=== PATIENT | male | born 1975 | race Caucasian/White ===

== ENCOUNTER 2017-01-25 14:25 | Emergency (ER) | payer BC ==
[2016-04-13 07:05] VITALS: BMI 32.2
[~2017-01-25 14:25] MED LIST: BAYER CHEWABLE81 MG PO; BENICAR HCT 40-1 TAB PO; FUROSEMIDE20 MG PO; KLOR-CON M2020 MEQ PO; NEXIUM20 MG PO; NORVASC5 MG PO; OXYCONTIN10 MG PO; PROZAC20 MG PO
[2017-01-25 15:18] LABS: BASOPHILS 0.1 % (0-2); EOSINOPHILS 0.3 % (0-7); HEMATOCRIT 44.7 % (42.0-54.0); HEMOGLOBIN 15.7 g/dL (13.5-17.5); IMMATURE GRANULOCYTES 0.2 % (0-5); LYMPHOCYTES 8.1 % (15-50); MCHC 35.1 g/dL (31.0-37.0); MCV 85.3 fL (80.0-100.0); MEAN PLATELET VOLUME 9.6 fL (7.4-10.4); MONOCYTES 7.5 % (2-11); NEUTROPHILS 83.8 % (40-80); PLATELET COUNT 222 10x3/uL (130-400); RBC 5.24 10x6/uL (4.20-6.10); RDW 12.6 % (11.5-14.5); WBC 17.1 10x3/uL (4.8-10.8)
[2017-01-25 15:34] LABS: APPEARANCE CLEAR (CLEAR); BILIRUBIN NEGATIVE (NEGATIVE); COLOR YELLOW (YELLOW); GLUCOSE NEGATIVE (NEGATIVE); KETONE NEGATIVE (NEGATIVE); NITRITE NEGATIVE (NEGATIVE); PROTEIN NEGATIVE (NEGATIVE); RED CELLS - URINE 0-5 /hpf (0-5); UROBILINOGEN NORMAL (NORMAL); WHITE CELLS - URINE >50 /hpf (0-5)
[2017-01-25 15:35] LABS: BACTERIA FEW /hpf (NONE SEEN)
[2017-01-25 16:09] LABS: ALKALINE PHOSPHATASE 61 U/L (46-116); ALT (SGPT) 65 U/L (10-68); BILIRUBIN - TOTAL 1.61 mg/dL (0.2-1.3); CALC OSMOLALITY 271 mosm/kg (275-300); CALCIUM 8.8 mg/dL (8.5-10.1); CARBON DIOXIDE 27.2 mmol/L (21.0-32.0); CHLORIDE - SERUM 101 mmol/L (98-107); CREATININE - SERUM 1.1 mg/dL (0.6-1.3); GLUCOSE 93 mg/dL (74-106); POTASSIUM - SERUM 4.1 mmol/L (3.5-5.1); PROTEIN - SERUM 7.2 g/dL (6.4-8.2); SODIUM 137 mmol/L (136-145); UREA NITROGEN 7 mg/dL (7-18); eGFR NON AFRICAN AMERICAN 79 mL/min (90-120)
== END 2017-01-25 18:30 | disposition home or self-care (01) ==
LOC: D.ER 14:25
PROVIDERS: Physician Assistant Medical
DX: N30.00 Acute cystitis without hematuria (principal); I10 Essential (primary) hypertension

== ENCOUNTER 2017-06-22 06:36 | Emergency (ER) | payer BC ==
[2016-04-13 07:05] VITALS: BMI 32.2
[2017-06-22 07:06] LABS: BASOPHILS 0.3 % (0-2); EOSINOPHILS 1.5 % (0-7); HEMATOCRIT 47.9 % (42.0-54.0); IMMATURE GRANULOCYTES 0.2 % (0-5); LYMPHOCYTES 24.3 % (15-50); MCH 29.9 pg (26.0-34.0); MCHC 35.5 g/dL (31.0-37.0); MCV 84.3 fL (80.0-100.0); MEAN PLATELET VOLUME 9.6 fL (7.4-10.4); MONOCYTES 7.1 % (2-11); NEUTROPHILS 66.6 % (40-80); PLATELET COUNT 238 10x3/uL (130-400); RBC 5.68 10x6/uL (4.20-6.10); RDW 12.5 % (11.5-14.5); WBC 9.9 10x3/uL (4.8-10.8)
[2017-06-22 07:22] LABS: ALBUMIN 3.9 g/dL (3.4-5.0); ALKALINE PHOSPHATASE 66 U/L (46-116); ALT (SGPT) 46 U/L (10-68); BILIRUBIN - TOTAL 1.58 mg/dL (0.2-1.3); CALC OSMOLALITY 277 mosm/kg (275-300); CALCIUM 9.2 mg/dL (8.5-10.1); CARBON DIOXIDE 28.4 mmol/L (21.0-32.0); CHLORIDE - SERUM 102 mmol/L (98-107); CREATININE - SERUM 1.2 mg/dL (0.6-1.3); GLUCOSE 100 mg/dL (74-106); PROTEIN - SERUM 8.1 g/dL (6.4-8.2); SODIUM 139 mmol/L (136-145); UREA NITROGEN 12 mg/dL (7-18); eGFR NON AFRICAN AMERICAN 71 mL/min (90-120)
[2017-06-22 07:32] LABS: CHOL - HDL RATIO 3.6 ratio (2.3-4.9); CHOLESTEROL, TOTAL 177 mg/dL (0-200); CKMB 0.5 U/L (0.0-3.6); CREATINE KINASE 139 UL (21-232); HDL CHOLESTEROL 49 mg/dL (32-96); LDL CHOLESTEROL 110 mg/dL (0-100); LDL-HDL RATIO 2.2 ratio (1.5-3.5); TRIGLYCERIDE 91 mg/dL (30-200); TROPONIN-I < 0.017 ng/mL (0.000-0.060)
== END 2017-06-22 08:58 | disposition home or self-care (01) ==
LOC: D.ER 06:36
PROVIDERS: Emergency Medicine
DX: R07.9 Chest pain, unspecified (principal); R59.0 Localized enlarged lymph nodes; I10 Essential (primary) hypertension; F17.200 Nicotine dependence, unspecified, uncomplicated

== ENCOUNTER 2018-01-04 08:41 | Emergency (ER) | payer BC ==
[~2018-01-04] VITALS: Ht 182.9 cm; Wt 104.5 kg
[2018-01-04 08:47] VITALS: Ht 182.9 cm; Wt 104.5 kg
[2018-01-04 09:14] LABS: BASOPHILS 0.1 % (0-2); EOSINOPHILS 0.1 % (0-7); HEMATOCRIT 43.4 % (42.0-54.0); HEMOGLOBIN 15.3 g/dL (13.5-17.5); IMMATURE GRANULOCYTES 0.5 % (0-5); LYMPHOCYTES 18.3 % (15-50); MCH 29.4 pg (26.0-34.0); MCHC 35.3 g/dL (31.0-37.0); MCV 83.5 fL (80.0-100.0); MEAN PLATELET VOLUME 9.5 fL (7.4-10.4); MONOCYTES 7.9 % (2-11); NEUTROPHILS 73.1 % (40-80); PLATELET COUNT 266 10x3/uL (130-400); RDW 12.5 % (11.5-14.5); WBC 13.7 10x3/uL (4.8-10.8)
[2018-01-04 09:33] LABS: APTT 26.2 SECONDS (22.8-39.4); INR 0.97 (0.85-1.17); PROTIME 12.5 SECONDS (11.6-15.0)
[2018-01-04 09:36] LABS: ALBUMIN 3.8 g/dL (3.4-5.0); ALKALINE PHOSPHATASE 64 U/L (46-116); ALT (SGPT) 74 U/L (10-68); BILIRUBIN - TOTAL 0.79 mg/dL (0.2-1.3); CALC OSMOLALITY 277 mosm/kg (275-300); CALCIUM 8.3 mg/dL (8.5-10.1); CARBON DIOXIDE 26.6 mmol/L (21.0-32.0); CHLORIDE - SERUM 105 mmol/L (98-107); GLUCOSE 100 mg/dL (74-106); POTASSIUM - SERUM 3.7 mmol/L (3.5-5.1); PROTEIN - SERUM 7.8 g/dL (6.4-8.2); SODIUM 139 mmol/L (136-145); UREA NITROGEN 12 mg/dL (7-18); eGFR NON AFRICAN AMERICAN 87 mL/min (90-120)
[2018-01-04] MEDS ORDERED: BUTALB-APAP-CA1 EACH PO (13:23)
[2018-01-04 13:49] VITALS: BP 139/94
== END 2018-01-04 13:51 | disposition home or self-care (01) ==
LOC: D.ER 08:41
PROVIDERS: Family Medicine
DX: R51 Headache (principal); D72.829 Elevated white blood cell count, unspecified; Z53.20 Procedure and treatment not carried out because of patient's decision for unspecified reasons

== ENCOUNTER → 2018-11-27 13:56 | Outpatient (CLI) | payer OTHER ==
[2018-01-04 08:47] VITALS: BMI 31.2
[~2018-11-27 13:56] MED LIST changes: +BUTALB-APAP-CA1 EACH PO
== END | disposition home or self-care (01) ==
LOC: D.HCCARDIO 13:56
PROVIDERS: ATTEND Internal Medicine Cardiovascular Disease
DX: I20.9 Angina pectoris, unspecified (principal)

== ENCOUNTER 2019-12-31 18:55 | Observation (INO) | payer OTHER ==
[~2019-12-31] VITALS: Ht 182.9 cm; Wt 102.3 kg
--- NOTE | ~2019-12-31 | HEMODYNAMI ---
PATIENT:NIALL RYAN MEDICAL RECORD: [id number] : 77 [id number] ADMISSION DATE: 12/31/19 Generatedon:01/01/202014:39 Patient name: NIALL RYAN Patient #: [id number] : 1975 Date of study: 01/01/2020 Page: Of Hemodynamic Procedure Report Patient Data Patient Demographics Procedure consent was obtained First Name: NIALL Gender: Male Last Name: CONNOR : 1975 Patient #: [id number] Age: 44 year(s) Race: SSN: [id number] Additional ID: [id number] Contact details [address]: [address] [place] [address] rd State: [place] City: [place] Zip code: [address] Past Medical History Allergies: No known allergies Admission Admission Data Admission Date: 12/31/2019 Admission Time: 21:00 Admit Source: Emergency Insurance Payor: Private department health insurance Room #: D.2121 [facility] #: [id number] Height (in.): 71.65 BSA: 2.23 (m2) Height (cm.): 182 BMI: 30.79 (kg/m2) Weight (lbs.): 224.87 Weight (kg.): 102 Lab Results Lab Result Date: 01/01/2020 Lab Result Time: 0:00 Biochemistry Name Units Result Min Max BUN mg/dl 15 --(--*-)-- 7 18 Creatinine mg/dl 1.2 --(---*)-- 0.6 1.3 eGFR ml/min 70.20123 *-(----)-- 90 120 NONAFRICAN CBC Name Units Result Min Max Hematocrit % 44.3 --(*---)-- 42 54 Hemoglobin g/dl 15.1 --(-*--)-- 13.5 17.5 Procedure Procedure Types Cath Procedure Diagnostic Procedure [facility] w/Coronaries Procedure Description Procedure Date Procedure Date: 01/01/2020 Procedure Start Time: 14:27 Procedure End Time: 14:36 Procedure Staff Name Function Kwame Gray MD Performing Physician Judy Chin RT Monitor Cadence David, RN Nurse Cadence David, RN Nurse Luiz Jackson RT Scrub Cynthiajo ann Fine RT Grocery Shopper Procedure Data Cath Procedure Fluoroscopy Diagnostic fluoroscopy Total fluoroscopy Time: 1.7 time: 1.7 min min Diagnostic fluoroscopy Total fluoroscopy dose: 480 dose: 480 mGy mGy Contrast Material Contrast Material Type Amount (ml) Isovue 300 54 Entry Location Entry Primary Successful Side Size Upsize Upsize Entry Closure [place] ccessful Closure Location (Fr) 1 (Fr) 2 (Fr) Remarks Device Remarks Radial Right 6 Fr Mechanical artery Short Compression Estimated blood loss: 5 ml Diagnostic catheters Device Type Used For End Catheter Placement DIAGNOSTIC Warren 110cm 5 Procedure Fr catheter ([id number]) Procedure Complications No complications Procedure Medications Medication Administration Route Dosage Oxygen etCO2 Nasal cannula 2 l/min Heparin Flush Bag added to field 2 bags (1000units/500ml NS) Lidocaine 2% added to field 20 0.9% NaCl I.V. 100 ml/hr Fentanyl I.V. 50 mcg Versed I.V. 1 mg Radial Cocktail I.A. 1 syringe (Verapamil 2mg/Nitro 400mcg/Heparin 1500units) Fentanyl I.V. 50 mcg Versed I.V. 1 mg Versed I.V. 0.5 mg Hemodynamics Rest BSA: 2.23 (m2) HGB: 15.1 (g/dl) O2 Consumption: Estimated: 270.86 (ml/min) O2 Co nsumption indexed: Estimated:121.46 (ml/min/m) Heart Rate: 70 (bpm) Pressure Samples Time Site Value (mmHg) Purpose Heart Use Rate(bpm) 14:30 AO 110/86(98) Pullback 80 14:30 LV 102/6,10 Pullback 80 Gradients Valve Time Site 1 Site 2 Mean SEP/DFP Peak To Heart Use (mmHg) (sec/min) Peak Rate (mmHg) (bpm) Aortic 14:30 LV AO 0 80 102/6,10 110/86(98) Calculations Valve P-P Mean Valve Index Valve Source Name Gradient Area Flow (cm2) Aortic 0 0 Snapshots Pre Cath Intra NCS Post Cath Vital Signs Time Heart Resp SPO2 etCO2 NIBP (mmHg) Rhythm Pain Sedation Rate (ipm) (%) (mmHg) Status Level (bpm) 14:23:43 12 94 44.1 119/76(101) NSR 0 (11) 10(A) , No pain 14:27:59 67 10 96 48.6 128/82(101) NSR 0 (11) 9(A) , No pain 14:32:21 76 11 94 46.3 131/73(99) NSR 0 (11) 9(A) , No pain 14:36:39 11 95 45.5 125/69(86) NSR 0 (11) 10(A) , No pain Medications Time Medication Route Dose Verified Delivered Reason Notes Effectiveness by by 14:07:40 Oxygen etCO2 2 l/min Cadence Cadence for low 02 Nasal Joann David sats cannula RN RN 14:07:49 Heparin Flush added 2 bags Cadence Cadence used for Bag to Joann David procedure (1000units/500ml field RN ANTONELLA NS) 14:07:59 Lidocaine 2% added 20ml Cadence Kwame for local to vial [facility] Sean David anesthetic field ANTONELLA JACOBS 14:08:11 0.9% NaCl I.V. 100 Cadence Cadence Per ml/hr Joann David, physician RN RN 14:26:42 Fentanyl I.V. 50 mcg Cadence Cadence for sedation Joann David RN RN 14:26:48 Versed I.V. 1 mg Cadence Cadence for sedation Joann David RN RN 14:28:39 Radial Cocktail I.A. 1 Cadence Kwame for (Verapamil syringe St Sean David vasodilation 2mg/Nitro RN 400mcg/Heparin 1500units) 14:29:11 Versed I.V. 0.5 mg Cadence Cadence for sedation Joann David RN RN 14:31:19 Fentanyl I.V. 50 mcg Cadence Cadence for sedation Joann David RN RN 14:31:22 Versed I.V. 1 mg Cadence Cadence for sedation Joann David RN RN Procedure Log Time Note 13:59:24 Informed consent obtained and on chart 14:02:44 Admit Source: Emergency department 14:02:48 Insurance Payor : Private health insurance 14:03:01 Patient Height : 71.65 inches 14:03:04 Patient Weight : 224.87 lbs 14:: Lab Result : Hematocrit 44.3 % 14: Lab Result : eGFR NONAFRICAN 70.80167 ml/min 14:44 Lab Result : Hemoglobin 15.1 g/dl 14: Lab Result : BUN 15 mg/dl 14: Lab Result : Creatinine 1.2 mg/dl 14:04:17 ACC Patient presents with Unstable Angina CCS Anginal Class 3--Marked limitation of physical activity, angina occurs with ordinary activity.. 14:04:19 ACCPatient has been prescribed/administered the following anti-anginal medication within the last 2 weeks: Beta Adriano 14:04:22 Procedure Status Urgent Heart Cath (IP). 14:04:35 Cynthia Fine RT(R) sent for patient. Start room use. 14:04:36 Time tracking: Regular hours (M-F 7:00 - 5:00) 14:04:39 Plan of Care:Hemodynamics will remain stable., Cardiac rhythm will remain stable., Comfort level will be maintained., Respiratory function will remain adequate., Patient/ family verbilizes understanding of procedure., Procedure tolerated without complication., Recovers from procedure without complications.. 14:04:48 H&P Date Dictated: 12/31/2019 Within 30 days and on chart.. 14:07:40 Oxygen 2 l/min etCO2 Nasal cannula was administered by Cadence David RN; for low 02 sats; Verbal order read back and verified. 14:07:49 Heparin Flush Bag (1000units/500ml NS) 2 bags added to field was administered by Cadence David RN; used for procedure; Verbal order read back and verified. 14:07:59 Lidocaine 2% 20ml vial added to field was administered by Kwame Gray MD; for local anesthetic; Verbal order read back and verified. 14:08:11 0.9% NaCl 100 ml/hr I.V. was administered by Cadence David RN; Per physician; Verbal order read back and verified. 14:11:35 Patient received from Med II to CCL 1 Alert and oriented. Tansferred to table in Supine position. 14:11:48 Warm blankets applied, and jose hugger turned on for patient comfort. 14::49 Correct patient and procedure confirmed by team. 14::49 ECG and BP/O2 sat monitors applied to patient. 14::31 Vital chart was started 14:22:33 Baseline sample Acquired. 14::40 Rhythm: sinus rhythm 14::44 Full Disclosure recording started 14::45 - 14::46 Pre-procedure instructions explained to patient. 14::47 Pre-op teaching completed and patient verbalized understanding. 14::49 Family unavailable. 14:22:51 Patient NPO since Midnight. 14::59 Patient allergic to No known allergies 14:23:02 Is the patient allergic to Iodine/contrast media? No. 14:23:09 Was the patient premedicated? Yes 14:23:15 Is patient on blood thinner?No 14:23:18 If diabetic: On Metformin? No 14:23:20 ----Pre-sedation anethsthesia assessment.---- 14:23:24 Previous problem with sedation/anesthesia? No ? 14:23:26 Snore? Yes 14:23:29 Sleep apnea? No 14:23:31 Deviated septum? Unknown 14:23:34 Opens mouth fully? Yes 14:23:36 Sticks out tongue? Yes 14:23:40 Airway obstruction? No ? 14:23:46 Dentures? Yes in tight 14:24:00 Pre procedure: right dorsailis pedis pulse 2+ Normal; easily identifiable; not easily obliterated 14:24:09 IV patent on arrival in left antecubital with 0.9% NaCl at [facility]. 14:24:16 Stress Test: no; N/A ? 14:24:24 Right Radial & Right Groin area was prepped with chlora-prep and draped in sterile fashion 14:24:29 Alarms reviewed by RHumberto NHumberto 14:24:30 Sharps counted by scrub and verified by R.N. 14:24:35 Use device set Radial Dx or PCI 14:24:38 ACIST Syringe (83152) opened to sterile field. 14:24:38 Medline Cath Pack ([id number]) opened to sterile field. 14:24:39 Bag Decanter (2002) opened to sterile field. 14:24:40 ACIST Hand Control (21112) opened to sterile field. 14:24:40 ACIST Manifold (18064) opened to sterile field. 14:24:42 MBrace Wrist Support ([id number]) opened to sterile field. 14:24:44 EMERALD Guide Wire (986-578) opened to sterile field. 14:24:45 SHEATH 6FR RAIN (4520095) opened to sterile field. 14:26:32 Physician arrived 14::33 --------ALL STOP TIME OUT------ 14::34 Final Timeout: patient, procedure, and site verified with staff and physician. All members of the team are in agreement. 14:26:36 Right Radial & Right Groin site verified by team. 14::42 Fentanyl 50 mcg I.V. was administered by Cadence David RN; for sedation; Verbal order read back and verified. 14:26:42 Fire Safety Assessment: A--An alcohol-based skin anteseptic being used preoperatively., C--Open oxygen or nitrous oxide is being used., D--An ESU, laser, or fiber-optic light is being used. 14:26:46 Physical assessment completed. ASA score P 2 - A patient with mild systemic disease as per Kwame Gray MD. 14::48 Versed 1 mg I.V. was administered by Cadence David RN; for sedation; Verbal order read back and verified. 14:26:52 2) 60-89 Mildly reduced kidney function, and other findings (as for stage 1) point to kidney disease. 14:26:58 Maximum allowable contrast dose (3.7 X eGFR X 0.75)194 ml. 14:27:06 Sedation plan: IV Moderate Sedation Medication:Versed, Fentanyl 14:27:12 Procedure started. 14:27:19 Local anesthetic to right radial artery with Lidocaine 2% by Kwame Gray MD.INITIAL ACCESS ONLY 14:28:12 Zero performed for pressure channel P1 14:28:25 Zero performed for pressure channel P1 14:28:39 Radial Cocktail (Verapamil 2mg/Nitro 400mcg/Heparin 1500units) 1 syring e I.A. was administered by Kwame Gray MD; for vasodilation; Verbal order read back and verified. 14:28:50 Baseline sample Acquired. 14:29:11 Versed 0.5 mg I.V. was administered by Cadence David RN; for sedation; Verbal order read back and verified. 14::14 A 6 Fr Short sheath was inserted into the Right Radial artery 14:29:22 A DIAGNOSTIC Warren 110cm 5 Fr catheter (345740) was advanced over the wire and used for Procedure. 14:29:30 Injector settings: Ml/sec: 5, Volume: 15, 14:30:21 LV gram done using NIETO 14:30:28 EF : 55 % 14:30:30 LV hemodynamics recorded. 14:30:57 RCA angiography performed. 14:31:03 Injector settings: Ml/sec: 3, Volume: 6, 14:31:19 Fentanyl 50 mcg I.V. was administered by Cadence David RN; for sedation; Verbal order read back and verified. 14:31:22 Versed 1 mg I.V. was administered by Cadence David RN; for sedation; Verbal order read back and verified. 14:31:28 LCA angiography performed. 14:31:40 Injector settings: Ml/sec: 3, Volume: 6, 14:32:23 Catheter removed. 14:32:30 ZEPHYR REGULAR TR BAND ([id number]) opened to sterile field. 14:33:04 Sheath removed intact; hemostasis achieved with Mechanical Compression to the Right Radial artery. 14:33:13 Procedure ended.(Physican Out) 14:33:29 Contrast amount:Isovue 300 54ml. 14:33:37 Fluoroscopy time 01.70 minutes. 14:33:43 Flurop Dose total: 480 14::43 Fluoroscopy dose: 480 mGy 14:33:52 Dose Area Product 51357 mGy/cm. 14:33:56 Maximum allowable dose exceeded? No. 14:33:57 Sharps counted by scrub and verified by R.N. 14:34:02 [place] band inflated with 10cc of air. 14:34:23 Post right radial artery:stable 14:34:28 Post-procedure physical assessment completed. ASA score P 2 - A patient with mild systemic disease as per Kwame Gray MD. 14:34:32 Post procedure rhythm: unchanged. 14:34:36 Estimated blood loss: 5 ml 14:34:37 Post procedure instruction explained to patient.Patient verbalizes understanding. 14:34:38 Patient needs reinforcement of post procedure teaching. 14:35:16 Procedure and supply charges have been captured, reviewed, submitted an d are correct. 14:35:56 Procedure Complication : No complications 14:36:00 Vital chart was stopped 14:36:02 [facility] Findings: mild to moderate CAD (<70%) 14:36:07 See physician's report for complete and final results. 14:36:10 Report given to [facility] II. 14:36:15 Patient transfered to [facility] II with Bed. 14:36:18 Procedure ended. 14:36:18 Full Disclosure recording stopped 14:36:21 End room use (Document Last) Device Usage Item Name Manufacture Quantity Catalog Hospital Part Current Minima l Lot# / Number Charge Number Stock Stock Serial# Code ACIST Acist 1 97721 408512 606939 141160 20 Syringe Medical (59186) Systems Inc Medline Medline 1 [id number] 883465 03564 977465 5 Cath Pack ([id number]) Bag Microtek 1 456562 09385 166036 5 Decanter Medical Inc. () ACIST Hand Acist 1 38714 302728 696108 997962 5 Control Medical (40950) Systems Inc ACIST Acist 1 59760 126354 754580 567187 5 Manifold Medical (02853) Systems Inc MBrace Advanced 1 140-0250-00 553434 09001 134706 5 Wrist Vascular Support Dynamics ([id number]) EMERALD Cardinal 1 502-577 929658 842568 197608 5 Guide Wire Health (909-127) SHEATH 6FR Cardinal 1 3556970 078763 7974793 481082 5 RAIN Health (1609322) DIAGNOSTIC Terumo 1 40-1235 705583 553638 768345 5 Warren 110cm 5 Fr catheter (147751) ZEPHYR Cardinal 1 805735 992859 2995216 621237 5 REGULAR TR Health BAND (314885) Signature Audit [place] Stage Time Signature Unsigned Intra-Procedure 01/01/2020 Judy 2:36:53 PM Elsy RT(R) (CV) Intra-Procedure 01/01/2020 Cadence David, 2:38:52 PM RN Intra-Procedure 01/01/2020 Kwame [place] 2:39:19 PM Sean JACOBS [facility] [address] [place] [address]
[2019-12-31] MEDS ORDERED: ZIAC 10-6.25 MG1 TAB PO (19:12)
[2019-12-31] MEDS ORDERED: COZAAR50 MG (19:12)
[2019-12-31] MEDS ORDERED: PROZAC20 MG PO (19:13)
[2019-12-31 19:23] LABS: BASOPHILS 0.2 % (0-2); EOSINOPHILS 0.9 % (0-7); HEMATOCRIT 45.5 % (42.0-54.0); HEMOGLOBIN 15.7 g/dL (13.5-17.5); IMMATURE GRANULOCYTES 0.3 % (0-5); LYMPHOCYTES 20.1 % (15-50); MCHC 34.5 g/dL (31.0-37.0); MCV 84.1 fL (80.0-100.0); MEAN PLATELET VOLUME 9.2 fL (7.4-10.4); MONOCYTES 6.3 % (2-11); NEUTROPHILS 72.2 % (40-80); PLATELET COUNT 268 10x3/uL (130-400); RBC 5.41 10x6/uL (4.20-6.10); RDW 12.5 % (11.5-14.5); WBC 12.3 10x3/uL (4.8-10.8)
[2019-12-31 19:33] LABS: CALC OSMOLALITY 280 mosm/kg (275-300); CALCIUM 9.2 mg/dL (8.5-10.1); CARBON DIOXIDE 24.2 mmol/L (21.0-32.0); CHLORIDE - SERUM 102 mmol/L (98-107); CREATININE - SERUM 1.4 mg/dL (0.6-1.3); GLUCOSE 91 mg/dL (74-106); POTASSIUM - SERUM 3.6 mmol/L (3.5-5.1); SODIUM 140 mmol/L (136-145); UREA NITROGEN 18 mg/dL (7-18); eGFR NON AFRICAN AMERICAN 59 mL/min (90-120)
[2019-12-31 19:59] LABS: ALKALINE PHOSPHATASE 60 U/L (30-120); ALT (SGPT) 60 U/L (10-68); BILIRUBIN - TOTAL 1.08 mg/dL (0.2-1.3); C-REACTIVE PROTEIN 0.6 mg/dL (0.0-0.9); CREATINE KINASE 281 UL (21-232); LIPASE 145 U/L (73-393); MAGNESIUM - SERUM 1.9 mg/dL (1.8-2.4); PRO BNP 17 pg/mL (0-125); PROTEIN - SERUM 7.9 g/dL (6.4-8.2); THYROID STIMULATING HORMONE 3.61 uIU/mL (0.36-3.74); TROPONIN-I < 0.017 ng/mL (0.000-0.060)
[2019-12-31 20:00] LABS: CKMB 1.4 U/L (0.0-3.6)
[2019-12-31 20:43] VITALS: BP 125/85
--- NOTE | 2019-12-31 21:33 | NUR ---
PATIENT TO THE FLOOR, ABLE TO AMBULATE TOT HE BED WITHOUT ASSISTANCE, REPORTS NO PAIN AT THIS TIME. LEFT AC PIV. NO DISTRESS NOTED, CALL LIGHT WITHIN REACH AND BED IN LOWEST LOCKED POSITION.
[2019-12-31 23:26] VITALS: BP 141/95; Ht 182.9 cm; Wt 102.3 kg
[2020-01-01 04:00] VITALS: BP 132/87
[2020-01-01 06:22] LABS: BASOPHILS 0.6 % (0-2); EOSINOPHILS 2.1 % (0-7); HEMATOCRIT 44.3 % (42.0-54.0); HEMOGLOBIN 15.1 g/dL (13.5-17.5); IMMATURE GRANULOCYTES 0.1 % (0-5); LYMPHOCYTES 35.2 % (15-50); MCHC 34.1 g/dL (31.0-37.0); MCV 85.2 fL (80.0-100.0); MEAN PLATELET VOLUME 9.2 fL (7.4-10.4); MONOCYTES 7.5 % (2-11); NEUTROPHILS 54.5 % (40-80); PLATELET COUNT 259 10x3/uL (130-400); RDW 12.7 % (11.5-14.5)
[2020-01-01 06:25] LABS: WBC 6.7 10x3/uL (4.8-10.8)
--- NOTE | 2020-01-01 07:00 | NUR ---
RECEIVED REPORT. ASSUMED CARE OF PATIENT. CALL LIGHT WITHIN REACH. BEDSIDE SHIFT REPORT COMPLETE. WHITE BOARD UPDATED. PT RESTING IN BED WITH EYES OPEN. PATIENT AWARE OF NPO STATUS. NO DISTRESS.
[2020-01-01 07:21] LABS: ANION GAP 15.9 mmol/L (8-16); CALCIUM 8.6 mg/dL (8.5-10.1); CARBON DIOXIDE 24.7 mmol/L (21.0-32.0); CHOL - HDL RATIO 3.1 ratio (2.3-4.9); CREATININE - SERUM 1.2 mg/dL (0.6-1.3); LDL-HDL RATIO 1.7 ratio (1.5-3.5); MAGNESIUM - SERUM 2.2 mg/dL (1.8-2.4); PHOSPHOROUS 3.8 mg/dL (2.5-4.9); POTASSIUM - SERUM 3.6 mmol/L (3.5-5.1)
[2020-01-01 07:50] VITALS: BP 133/86
[2020-01-01 09:32] LABS: ALT (SGPT) 73 U/L (10-68)
--- NOTE | 2020-01-01 10:47 | NUR ---
PREOP MEDS FOR HEAR CATH ADMINISTERED AT THIS TIME.
[2020-01-01 11:46] VITALS: BP 129/84
--- NOTE | 2020-01-01 14:11 | NUR ---
PATIENT LEFT UNIT VIA BED FOR DATACAP DEVELOPER AT THIS TIME. NO DISTRESS UPON LEAVING UNIT.
--- NOTE | 2020-01-01 14:40 | NUR ---
PATRICK FROM [employer] [facility] DEVELOPER CALLED REPORT. PATIENT BACK TO UNIT SOON. PATIENT HAD CLEAN HEART CATH WITH ENTRY VIA RIGHT WRIST. TR BAND PATENT AT THIS TIME.
--- NOTE | 2020-01-01 14:55 | NUR ---
PATIENT RETURNED TO UNIT. TR BAND INTACT TO RIGHT WRIST. NO S/S BLEEDING OR HEMATOMA FORMATION. IV FLUIDS INFUSING ORDERED. CALL LIGHT AND PERSONAL CELLPHONE PLACED WITHIN REACH. PERIPHERAL PULSES PATENT. NO DISTRESS. TOLERATED HEART CATH WELL.
[2020-01-01 16:11] VITALS: BP 94/62
--- NOTE | 2020-01-01 16:30 | NUR ---
TR BAND REMOVED FROM RIGHT WRIST. NO BLEEDING FROM SITE. PRESSURE DRESSING WITH GAUZE AND TEGADERM APPLIED TO RIGHT WRIST CATH SITE. PATIENT VERBALIZED UNDERSTANDING OF INSTRUCTIONS PROVIDED. NO DISTRESS.
--- NOTE | 2020-01-01 18:04 | NUR ---
TELEMETRY REMOVED AND RETURNED TO CRAPS MANAGER 20 GAUGE IV REMOVED FROM LEFT AC. CATHETER TIP INTACT. NO BLEEDING FROM SITE. 2X2 GAUZE APPLIED AND SECURED WITH BANDAID. PATIENT TOLERATED IV REMOVAL WELL HE IS BEING DISCHARGED TO HOME. DISHCARGE INSTRUCTIONS PROVIDED. PATIENT VERBALIZED UNDERSTANDING OF ALL INSTRUCTIONS PROVIDED. NO DISTRESS.
--- NOTE | 2020-01-01 18:30 | NUR ---
PATIENT LEFT UNIT VIA WHEELCHAIR AT THIS TIME. NO DISTRESS. PATIENT DISCHARGED TO HOME WITH FAMILY.
--- NOTE | 2020-01-02 09:11 | OP ---
PATIENT NAME: NIALL RYAN MEDICAL RECORD: [id number] :77 LOCATION:D.M2 D.2121 ADMISSION DATE:12/31/19 SURGEON: CASS RIBERA MD DATE OF OPERATION: 01/01/2020 PROCEDURE: Left heart catheterization, selective coronary angiography, right radial approach. CATHETERS: Radial sheath, Cecilia catheter. The procedure was well tolerated. The patient returned to the gunter. Sheath removed. TR band was placed. FINDINGS: Left ventriculography in 30-degree NIETO view: Normal wall motion and normal systolic function. CORONARY ANATOMY: LEFT MAIN: Left main large vessel, free of disease. LAD: Again, very large vessel, free of disease. CIRCUMFLEX: Free of disease. RIGHT CORONARY ARTERY: Dominant artery, gives rise to PDA, free of disease. IMPRESSION: Normal left ventricular systolic function. Normal coronary anatomy. TRANSINT:[id number] Voice Confirmation ID: [id number] DOCUMENT ID: [id number] CASS RIBERA MD at 0911 CC: [id number] DICTATION DATE: 01/01/20 1448 READING TEACHER: 01/01/20 2238 DIS IN 01/01/20 [facility] [address] [place] [address]
--- NOTE | 2020-01-02 09:11 | CN ---
PATIENT NAME:NIALL RYAN MEDICAL RECORD: [id number] : [birth year] LOCATION:D. D.2121 ADMIT DATE: 12/31/19 ACCOUNT: [id number] CONSULTING PHYSICIAN: CASS RIBERA MD REFERRING PHYSICIAN: JONATHON WEISS MD DATE OF CONSULTATION: 01/01/2020 HISTORY OF PRESENT ILLNESS: A 44-year-old gentleman with history of hypertension, hyperlipidemia, gastroesophageal reflux disease plus strong family history of coronary artery disease, presented to the ER with chest pressure and tightness, symptomology began over the past 2-3 days, became acutely worse yesterday, was outside changing gearbox on a osorio hog, pressure became so intense had to stop on the side of the road. He has been on antihypertensive for about 2 weeks. He is a nonsmoker. Does have a family history of coronary artery disease. We are asked to see him concerning his cardiovascular status. PAST MEDICAL HISTORY: Includes: 1. History of hypertension. 2. Hyperlipidemia. 3. Gastroesophageal reflux disease. MEDICATIONS: Include Zebeta 10 every day, Cozaar 50 every day, Lasix 20 every day, potassium supplementation 20 mEq every day, Prozac 20 every day. SOCIAL HISTORY: Nonsmoker, social drinker. Easily takes care of all his ADLs. ALLERGIES: NORCO AND WASP. REVIEW OF SYSTEMS: The patient reports easy bruising but reports no swollen glands. The patient reports no fever, no night sweats, no significant weight gain, no significant weight loss. No significant exercise tolerance. The patient reports no dry eyes, no irritation, no vision change. Patient reports no difficulty hearing and no ear pain. Patient reports no frequent nose bleeds or nose and sinus problems. Patient reports on arm pain on exertion. No shortness of breath while lying down. No history of heart murmur. Patient reports no cough, no wheezing or coughing up blood. Patient reports no abdominal pain, no vomiting. Normal appetite. No diarrhea and not vomiting blood. No nausea and no constipation. Patient reports no incontinence. No difficulty urinating. No hematuria. No increased frequency. Patient reports no muscle aches. No weakness, no arthralgias, no back pain. No swelling of the extremities. Patient reports no abnormal mole, no jaundice, no rashes. Reports no loss of consciousness. No weakness and no numbness. No seizures, dizziness, or headaches. The patient reports no depression, no sleep disturbance, feeling safe in a relationship and no alcohol abuse. Patient reports on fatigue. Reports no runny nose or sinus pressure. No itching, no hives, and no frequent sneezing. PHYSICAL EXAMINATION: GENERAL: Pleasant, in no acute distress, appears stated age. VITAL SIGNS: Blood pressure 133/86, pulse 68 and regular. HEENT: Normocephalic, atraumatic. NECK: No bruits noted. HEART: Regular. A II/ systolic ejection murmur. LUNGS: Good air excursion. ABDOMEN: Soft, nontender. CONSULT REPORT [id number] STILL,NIALL EXTREMITIES: Pulses 2+ and equal. No edema. DIAGNOSTIC DATA: EKG shows probable LVH with nonspecific ST-T changes. IMPRESSION: Acute coronary syndrome, given symptomology of rapid onset and rest symptoms at this point. PLAN: For angiography, intervention based on above. TRANSINT:[id number] Voice Confirmation ID: [id number] DOCUMENT ID: [id number] CASS RIBERA MD at 0911 CC: [id number] DICTATION DATE: 01/01/20 1143 EMPLOYMENT LAW ATTORNEY: 01/01/20 1518 DIS IN 01/01/20 [place] [id number] [place] [id number]
== END 2020-01-01 18:53 | disposition home or self-care (01) ==
LOC: D.ER 18:55 → D.M2 21:00 → OBSVTIME 01-01 18:52 → D.M2 01-01 18:53
PROVIDERS: Family Medicine; Internal Medicine Interventional Cardiology; ADMIT Family Medicine; ATTEND Family Medicine
DX: R07.9 Chest pain, unspecified (principal); N17.9 Acute kidney failure, unspecified; I10 Essential (primary) hypertension; F10.20 Alcohol dependence, uncomplicated; K21.9 Gastro-esophageal reflux disease without esophagitis